=== PATIENT | male | born 1945 | race Caucasian/White ===

== ENCOUNTER → 2018-07-23 16:54 | Outpatient (CLI) | payer MEDICARE, SELFPAY | PROVIDERS: Family Provider Family Medicine; PCP Family Medicine; Referring Provider Nurse Practitioner Adult Health; Visit Provider Nurse Practitioner Adult Health | DX: R30.0 Dysuria (principal) | CPT/HCPCS: 87077; 87086; 87088; 87186 ==

== ENCOUNTER → 2019-12-30 18:05 | Outpatient (CLI) | payer MEDICARE, SELFPAY | PROVIDERS: PCP Family Medicine | DX: N39.0 Urinary tract infection, site not specified (principal) | CPT/HCPCS: 87077; 87086; 87088; 87186 ==

== ENCOUNTER → 2020-07-16 13:59 | Outpatient (CLI) | payer MEDICARE, SELFPAY | PROVIDERS: PCP Family Medicine; Referring Provider Urology; Visit Provider Urology | DX: R33.8 Other retention of urine (principal) | CPT/HCPCS: 87077; 87086; 87088; 87186 ==

== ENCOUNTER 2020-08-26 07:54 | Day surgery (SDC) | payer MEDICARE, SELFPAY ==
--- NOTE | 2020-08-21 09:00 | EKG12_ITS ---
Test Reason : PREOP Blood Pressure : / mmHG Vent. Rate : 068 BPM Atrial Rate : 068 BPM P-R Int : 220 ms QRS Dur : 086 ms QT Int : 430 ms P-R-T Axes : 077 058 077 degrees QTc Int : 457 ms Sinus rhythm with 1st degree A-V block with frequent Premature ventricular complexes Otherwise normal ECG Confirmed by JS RAY, JOSE DE JESUS ([id number]), medical editor LEANNE NGUYEN ([id number]) on 08/24/2020 9:53:31 AM Referred By: Rafy Chambers Confirmed By:RUBINA WEINSTEIN MD
[2020-08-21 10:16] LABS: Hematocrit 46.8 % (40-54); Hemoglobin 15.6 g/dL (13.0-16.5); Mean Corp Hgb Conc 33.3 g/dL (32-36); Mean Corpuscular Hgb 33.3 pg (27.0-32.0); Mean Corpuscular Volume 99.8 fL (80-94); Mean Platelet Vol. 9.6 fl (6.2-12.0); Platelet Count 203 K/mm3 (150-450); RBC Distribution Width CV 12.3 % (11.6-14.6); RBC Distribution Width SD 45.3 fl (35.1-43.9); Red Blood Count 4.69 M/mm3 (4.6-6.2); White Blood Count 3.1 K/mm3 (4.4-11.0)
[2020-08-21 10:49] LABS: Anion Gap 3 (5-15); BUN 22 mg/dL (7-18); BUN/Creat Ratio 23.6 RATIO (10-20); Calcium,Total 9.1 mg/dL (8.5-10.1); Chloride 104 mmol/L (98-107); Creatinine, Serum 0.93 mg/dL (0.70-1.30); EST Glomerular Filtration Rate 83 mL/min (>60); Est Glom Filt Rate - Afr Amer 101 mL/min (>60); Glucose 92 mg/dL (74-106); Sodium Level 137 mmol/L (136-145)
[2020-08-26] VITALS (12 sets, daily range): BP systolic 122–161; BP diastolic 67–81; PULSE 57–71; RESP 16–18; TEMP 36.2–37.1; O2SAT 93–100; BMI 28.9
[2020-08-26] MEDS: Lactated Ringers 1,000 ML 100 ML IV (08:53)
--- NOTE | 2020-08-26 10:10 | PROS_PTH ---
PATIENT: Cornel DAILY LOC: [facility] [place] U#:[id number] AGE/SX: 75/M ROOM: RE08/26/[address]: Dr. Rafy Chambers MD : [id number] BED: DIS: 08/27/2020 SPEC #: [id number] RECD: 08/26/20 14:05 STATUS: SLIME REHazel #: [id number] CLARA: 08/26/20 10:[address]: Rafy Chambers DEPT: SURGICAL PATHOLOGY RECD BY: Noni Delcid ENTERED: 08/27/20 08:20 SP TYPE: TURP OTHR DR: Dr. Flaco Glasgow MD Tissues: Prostate, NOS Procedures: Surgery Specimen Level II Surgery Specimen Level IV HEADER OPERATION: Cysto, TUR prostate, [employer] PRE-OP DIAGNOSIS: Bladder stone; BPH with obstruction/lower urinary tract symptoms TISSUE SUBMITTED: Prostate chips and bladder stone MICROSCOPIC DIAGNOSIS Prostate, transurethral resection: Benign nodular hyperplasia, glandular and stromal types. Urothelium with mild chronic inflammation. Urinary bladder calculi, removal: Unremarkable calculi (gross diagnosis only). AM:teresita 08/28/2020 MICROSCOPIC DESCRIPTION Slides are reviewed. GROSS DESCRIPTION Received is one container labeled with the patient's name and designated prostate chips and bladder stone. The specimen consists of multiple irregular fragments of pink-coleman, rubbery, soft tissue that in aggregate weigh 7.6 gm and measure in aggregate 5 x 4 x 1 cm. Also present in the container mixed with soft tissue are multiple fragments of brown stone measuring in aggregate 1.5 x 1 x 0.5 cm. The entire soft tissue is submitted in six cassettes. The stones are for gross identification only. / SJ:teresita 08/27/20 TC:3 CPT: 38152, 06098
[2020-08-26] MEDS: Cefazolin 2 GM in 0.9% Normal Saline 100 ML IV (10:39)
--- NOTE | 2020-08-26 10:40 | PCM.HP.STD ---
HPI - General HPI Narrative Cornel DAILY, is a 75 M who presents For treatment of a very large bladder stone and also transurethral resection of a enlarged prostate. PFSH Home Medications aspirin 81 mg PO DAILY 08/19/20 [History Last Taken 08/18/20] dutasteride 0.5 mg PO QHS 08/19/20 [History Last Taken Unknown] metoprolol tartrate 50 mg PO DAILY 08/19/20 [History Last Taken 08/26/20 07:30] omeprazole 20 mg PO DAILY 08/19/20 [History Last Taken 08/26/20 07:30] simvastatin 10 mg PO QHS 08/19/20 [History Last Taken Unknown] sotalol 120 mg PO BID 08/19/20 [History Last Taken 08/26/20 07:30] tamsulosin 0.4 mg PO QHS 08/19/20 [History Last Taken Unknown] Allergy/AdvReac Type Severity Reaction Status Date / Time No Known Allergies Allergy Verified 08/19/20 12:50 Social History Smoking Status: Never smoker Vital Signs Vital Signs Vital Signs: 08/26/20 08:45 Temperature 97.6 F L Temperature Source Temporal Pulse Rate 60 Respiratory Rate 18 Respiratory Pattern Normal Blood Pressure 161/78 H Blood Pressure Mean 105 Blood Pressure Source Monitor Blood Pressure Position Semi-Fowlers Blood Pressure Location Right Arm Pulse Ox 96 Oxygen Delivery Method Room Air Physical Exam Const alert and oriented x3 General Appearance: cooperative HEENT normocephalic, head/scalp atraumatic, EAC's normal and TM's normal bilaterally Eyes PERRL and EOMs intact bilaterally Pupil: sluggish Neck no lymphadenopathy, supple and no JVD General: trachea midline Lymph Lymphatic: no lymphadenopathy noted, lymphedema and lymphadenopathy Resp normal respiratory effort, normal air movement and clear to auscultation bilaterally Cardio regular rate, regular rhythm and peripheral pulses 2+ throughout GI soft to palpation, non-tender and non-distended Extremity normal capillary refill and no clubbing, cyanosis or edema General Extremity: no tenderness to palpation of joints or extremities Skin no rashes or lesions noted General Skin Exam: turgor normal Lesions: no lesions Rashes: no rashes Neuro CN's II-XII intact bilaterally Speech: speech normal Motor Exam: strength 5/5 throughout; Negative for general weakness Psych thought process normal, cooperative and affect normal Appearance: appropriate Lab / Micro Data Result Diagrams: 08/21/20 09:15 08/21/20 09:15 Assessment & Plan Assessment/Plan (1) Bladder stone: Status: Acute Code(s): N21.0 - Calculus in bladder (2) BPH with obstruction/lower urinary tract symptoms: Status: Acute Code(s): N40.1 - Benign prostatic hyperplasia with lower urinary tract symptoms; N13.8 - Other obstructive and reflux uropathy Plan: Plan to proceed with cystoscopy and laser of bladder stone and also a transurethral resection of the prostate.
--- NOTE | 2020-08-26 10:50 | PCM.DC ---
Discharge Instructions Outpatient Procedure Reason For Visit: CYSTO LASER LITHOLAPAXY, TURP OLYMPUS Diet Discharge Diet: No restrictions Activity Discharge Activity: Return to Normal Activity and May Not Drive Return to work on:: 09/23/20 May resume sexual activity in: 6-8 weeks Dressing / Incision Call your doctor if your incision/area has: Continuous Slow Oozing and Sudden Increased Bleeding Call your doctor if you observe: Fever of 101 or Higher Follow Up Care Please Follow Up With: Rafy Chambers MD When: 2 weeks Test Results: Test results from this visit will be discussed in further detail at your follow-up appointment, if applicable. Discharge Plan Admission Attending Provider: Rafy Chambers Primary Care Provider: Flaco Glasgow Instructions Patient Instructions: Transurethral Resection of the Prostate (TURP): Home Recovery Discharge Orders/Prescriptions Prescriptions: New ciprofloxacin HCl [Cipro] 500 mg tablet 500 mg PO Q12H Qty: 14 RF: 0 Continued sotalol 80 MG tablet 120 mg PO BID RF: 0 simvastatin 10 MG tablet 10 mg PO QHS RF: 0 metoprolol tartrate 50 MG tablet 50 mg PO DAILY RF: 0 omeprazole 20 MG capsule 20 mg PO DAILY RF: 0 Held aspirin 81 MG tablet,delayed release (DR/EC) 81 mg PO DAILY RF: 0 Hold Instructions: Resume on 09/23/20. Discontinued tamsulosin 0.4 MG capsule 0.4 mg PO QHS RF: 0 dutasteride 0.5 MG capsule 0.5 mg PO QHS RF: 0 Referrals: Flaco Glasgow MD [Primary Care Provider] -
--- NOTE | 2020-08-26 11:25 | PCM.OPRPT ---
Report of Operation Date of Procedure: 08/26/20 Pre-Operative Diagnosis: Bladder stones and BPH with obstruction Post-Operative Diagnosis: Same Surgery/Procedure Performed:: Transurethral section of the prostate Description of Surgical Findings:: In the preoperative setting I discussed with the patient how the surgery would be done with expect afterwards. We discussed how a prostate resection is done and we discussed the risk of the surgery including, bleeding, infection, retrograde ejaculation, changes with ejaculation or intercourse,. We discussed the possibility that the resection of the prostate may not alleviate his urinary symptoms. We discussed the small risk of developing scar tissue along the urethral channel and strictures. We also discussed the chance of the prostate could grow back and he may need further surgery or treatment in the future for prostate problems. The urethra and genitals were prepped and draped in usual sterile fashion. Went into the bladder using a 24 [place] cystoscope. We used the laser bridge through the scope for continuous irrigation. Then using the laser bridge we introduced a laser fiber into the bladder and the stone in the bladder was trapped against the back wall. The stone measured 3.5cm in size. The stone was then lasered using laser lithotripsy the small little pieces all the pieces were evacuated on the bladder. After all the stones were removed then the scope was removed there was minimal bleeding. Penis and testicles were prepped and draped in usual sterile fashion. Went into the bladder using the visual obturator with a resectoscope. Once inside the bladder identified the right and left ureteral orifice. I then identified the prostate and the anatomy of the prostate. I marked out the area of the sphincter and the verumontanum was identified. I then proceeded with the prostate resection first resected the median lobe. And then resected the right lobe of the prostate. Then to resect the left lobe of the prostate. I then resected the apical tissue of the prostate. Made sure that there was no injury to the sphincter or the verumontanum was still intact. At the end of the resection all the chips were Ellik out of the bladder. I then identified the left and right ureteral orifice and these were confirmed to be in good position and effluxing and not injured. The resectoscope was removed, a 22 [place] catheter was placed into the bladder on continuous irrigation. And the urine was fairly light pink color and draining normally. He was taken back to the PACU in good condition. Type of Anesthesia: General Specimen's removed: stone piece (sample) and prostate chips Estimated Blood Loss (mL): minimal Admit VTE Documentation VTE Present on Admission: No VTE Mechan Device Prophylaxis: SCD's
[2020-08-26] MEDS: Lactated Ringers 1,000 ML 125 ML IV ×2 (13:48→21:18)
[2020-08-26] MEDS: Ciprofloxacin 400 MG/200 ML BAG 200 MG IV (17:33)
[2020-08-26] MEDS: Atorvastatin Calcium 10 MG Tablet 5 MG PO (22:27)
[2020-08-26] MEDS: Sotalol Hydrochloride 80 MG Tablet 120 MG PO (22:28)
[2020-08-27 01:26] VITALS: BP 112/68; PULSE 67; RESP 16; TEMP 37; O2SAT 94
[2020-08-27 05:06] VITALS: BP 135/75; PULSE 70; RESP 16; TEMP 37.1; O2SAT 94
[2020-08-27] MEDS: Lactated Ringers 1,000 ML 125 ML IV (05:08)
[2020-08-27] MEDS: Ciprofloxacin 400 MG/200 ML BAG 200 MG IV (05:09)
[2020-08-27 09:54] VITALS: BP 136/79; PULSE 83; RESP 16; TEMP 36.8; O2SAT 97
--- NOTE | 2020-08-27 10:55 | PHA.DC.MC ---
Pharmacy Service has performed discharge medication reconciliation and counseling for this patient. The patient was counseled on the following discharge medications and changes in medications for homegoing were reviewed. 1. CIPRO The Reason for Use, instructions for use, and potential side effects were reviewed for all new medications. The patient's questions regarding all of their medications were answered. The patient was able to verbally demonstrate an understanding of their discharge medications. Home Medications aspirin 81 mg PO DAILY 08/19/20 metoprolol tartrate 50 mg PO DAILY 08/19/20 omeprazole 20 mg PO DAILY 08/19/20 simvastatin 10 mg PO QHS 08/19/20 sotalol 120 mg PO BID 08/19/20 ciprofloxacin HCl [Cipro] 500 mg PO Q12H #14 tab 08/26/20 The patient's discharge medication list was reviewed for discrepancies and discrepancies were resolved.
== END 2020-08-27 10:22 | disposition home or self-care (01) ==
LOC: SDC 07:54 → AC 07:55 → MS3 08-27 08:14
PROVIDERS: Anesthesiology; PCP Family Medicine; Referring Provider Urology; Visit Provider Urology
PROC: (CPT 52630; principal; 2020-08-26 10:00)
PROC: (CPT 52630; 2020-08-26 10:00)
DX: N40.1 Benign prostatic hyperplasia with lower urinary tract symptoms (principal); N13.8 Other obstructive and reflux uropathy; N21.0 Calculus in bladder; Z79.82 Long term (current) use of aspirin
CPT/HCPCS: 00914; 52630; 36415; 80048; 85027; 88302; 88305; 93005; 99251; J7120; G0463; J0744; J2405